=== PATIENT | male | born 1950 | race Caucasian/White ===

== ENCOUNTER 2019-02-21 08:03 | Day surgery (SDC) | payer OTHER ==
[~2019-02-21] VITALS: Ht 162.6 cm; Wt 86.6 kg
[2019-02-21 08:51] VITALS: Ht 162.6 cm; Wt 86.6 kg
[2019-02-21] MEDS ORDERED: FLUT16SP17 NASAL (09:03)
[2019-02-21] MEDS ORDERED: TAMS0.4C2 PO (09:03)
[2019-02-21] MEDS ORDERED: IBUP-1544 PO (09:03)
[2019-02-21] MEDS ORDERED: GLIP5TAB13 PO (09:03)
[2019-02-21] MEDS ORDERED: LEVO75TA5 PO (09:03)
[2019-02-21] MEDS ORDERED: OMEG-140 PO (09:03)
[2019-02-21] MEDS ORDERED: MTF1000T PO (09:03)
[2019-02-21] MEDS ORDERED: SIMV80TA18 PO (09:03)
[2019-02-21] MEDS ORDERED: LORA10TA3 PO (09:03)
[2019-02-21] MEDS ORDERED: METO-335 PO (09:03)
[2019-02-21] MEDS ORDERED: LOSA100T15 PO (09:03)
[2019-02-21] MEDS ORDERED: AMLO2.5T78 PO (09:03)
--- NOTE | 2019-02-21 09:39 | PREAC ---
Date/Time of Note Date/Time of Note DATE: 02/21/19 TIME: 09:37 Anesthesia Eval and Record Evaluation Time Pre-Procedure Interview DATE: 02/21/19 TIME: 09:37 Age 68 Sex male NPO: 8 hrs Preoperative diagnosis screening Planned procedure colonoscopy Past Medical History Past Medical History: Includes Cardio: HTN, Dyslipidemia, [place] Endo: Diabetes, Hypothyroid Pulm: Asthma Neuro: Peripheral neuropathy Renal: BPH GI: GERD, Obesity Psych: Depression, Anxiety Surgery & Anesthesia Issues No known issue Meds Anticoagulation: No Beta Kobe within 24 hr: Yes Reported Medications [place]-3/Dha/Epa/Fish Oil ([place] 3 500 Softgel) 1 Each Capsule, 1 EACH PO, CAP 02/21/19 Fluticasone Propionate* (Fluticasone Propionate* Nasal) 50 Mcg/[place] - 16 Gm [place].susp, 1 SPRAY NASAL BID, #1 BOTTLE TO EACH NOSTRIL 02/21/19 Tamsulosin Hcl* (Tamsulosin Hcl*) 0.4 Mg Cap.er.24h, 0.4 MG PO HS, CAP 02/21/19 Loratadine* (Loratadine*) 10 Mg Tablet, 10 MG PO DAILY, #30 TAB 02/21/19 Ibuprofen* (Ibuprofen*) 800 Mg Tablet, 800 MG PO Q6H PRN for PAIN LEVEL 6-10, TAB 02/21/19 Simvastatin* (Simvastatin*) 80 Mg Tablet, 40 MG PO QHS, #30 TAB 02/21/19 Levothyroxine Sodium* (Levothyroxine Sodium*) 75 Mcg Tablet, 75 MCG PO BEFORE BREAKFAST, #30 TAB 02/21/19 Glipizide* (Glipizide*) 5 Mg Tablet, 2.5 MG PO AC BREAKFAST, TAB 02/21/19 Metformin* (Glucophage*) 1,000 Mg Tablet, 1000 MG PO DAILY, #30 TAB 02/21/19 Amlodipine Besylate* (Amlodipine Besylate*) 2.5 Mg Tablet, 5 MG PO DAILY, #30 TAB 02/21/19 Metoprolol Succinate* (Toprol XL*) 25 Mg Tab.sr.24h, 25 MG PO DAILY, #30 TAB 02/21/19 Losartan Potassium* (Losartan Potassium*) 100 Mg Tablet, 100 MG PO DAILY, TAB 02/21/19 Meds reviewed: Yes Allergies Allergies Reviewed: Yes Labs/Studies Labs Reviewed: Reviewed by anesthesiologist test: N/A Studies: ECG Pre-procedure Exam Airway: Adequate mouth opening, Adequate thyromental dist Mallampati: Mallampati III Teeth: Normal Lung: Normal Heart: Normal ASA Physical Status ASA physical status: 3 Emergency: None Planned Anesthetic General/MAC: MAC Planned Pain Management Parenteral pain med Pre-operative Attestations Prior to commencing anesthesia and surgery, the patient was re-evaluated, there was verification of: *The patient's identity *The results of appropriate recent lab work and preoperative vital signs *The above evaluation not changing prior to induction *Anesthetic plan, risk benefits, alternative and complications discussed with patient/family; questions answered; patient/family understands, accepts and wishes to proceed. SHARI MANNING MD Feb 21, 2019 09:39
[2019-02-21 10:35] VITALS: BP 118/83; PULSE 76; RESP 16
--- NOTE | 2019-02-21 12:49 | PAC ---
Date/Time of Note Date/Time of Note DATE: 02/21/19 TIME: 12:49 Post-Anesthesia Notes Post-Anesthesia Note Last documented vital signs Vital Signs Date Temp Pulse Resp B/P (MAP) Pulse Ox O2 O2 Flow FiO2 Time Delivery Rate 02/21/19 76 16 118/83 97 Room Air 10:35 (95) Activity: WNL Respiratory function: WNL Cardiovascular function: WNL Mental status: Baseline Pain reasonably controlled: Yes Hydration appropriate: Yes Nausea/Vomiting absent: Yes SHARI MANNING MD Feb 21, 2019 12:49
== END 2019-02-21 15:19 | disposition home or self-care (01) ==
LOC: GIL 08:03
PROVIDERS: ATTEND Internal Medicine Gastroenterology
DX: Z12.11 Encounter for screening for malignant neoplasm of colon (principal); K64.8 Other hemorrhoids; D12.5 Benign neoplasm of sigmoid colon; I10 Essential (primary) hypertension; E03.9 Hypothyroidism, unspecified; I25.2 Old myocardial infarction; E11.9 Type 2 diabetes mellitus without complications; J45.909 Unspecified asthma, uncomplicated
CPT/HCPCS: 45380; 82962; 88305; Z7610